=== PATIENT | female | born 1980 | race American Indian/Alaskan Native ===

== ENCOUNTER 2017-01-27 11:06 | Inpatient (IN) | payer MEDICAID ==
[2017-01-27] MEDS ORDERED: LACTATED RINGERS 1,000 ML ONE (11:07)
[2017-01-27] MEDS ORDERED: PITOCin/NS 20 UNIT/1000ML DRIP 20,000 MILLIUNITS/1,000 ML BAG IV ONE (11:07)
[2017-01-27 11:50] LABS: Basophils % (Auto) 0.6 % (0.0-1.8); Eosinophils % (Auto) 0.4 % (0.0-4.3); Mean Corpuscular HGB Conc 29 % (30-34); Platelet Count 337 K/mm3 (140-440); Red Blood Count 4.28 M/mm3 (3.65-5.03); White Blood Count 10.7 K/mm3 (4.5-11.0)
[2017-01-27 11:53] LABS: Hemoglobin 7.3 gm/dl (10.1-14.3)
[2017-01-27 11:54] LABS: Mean Corpuscular Hemoglobin 17 pg (28-32); Mean Corpuscular Volume 58 fl (79-97); Red Cell Distribution Width 21.6 % (13.2-15.2)
[2017-01-27] MEDS ORDERED: TORADOL IV ONE (11:59)
--- NOTE | 2017-01-27 11:59 | History and Physical Report ---
History of Present Illness Date of examination: 01/27/17 Date of admission: 01/27/17 11:08 Chief complaint: contractions and leakage of fluid History of present illness: 36y/o @ 39+4 weeks presents in active labor with advanced cervical dilatation. The patient reports leakage of fluid upon presentation. The patient is a transfer of care late in the third trimester. [facility] initiated her care at 20 weeks estimated gestational age. The patient has a history of a prior delivery with 2 successful vaginal deliveries after . Her course is also complicated by advanced maternal age and severe anemia. The patient has elected to have an attempt at a trial of labor. Her GBS status is positive. The patient did not receive adequate with antibiotic treatment for her GBS. Past History Past Medical History: no pertinent history Past Surgical History: section [employer] History: gonorrhea Social history: - Obstetrical History Expected Date of Delivery: 01/30/17 Actual Gestation: 39 Week(s) 4 Day(s) : 7 Para: 4 Hx # Term Pregnancies: 4 (stillborn ) Number of Pregnancies: 0 Spontaneous Abortions: 2 Induced : 0 Number of Living Children: 3 Medications and Allergies Allergies Allergy/AdvReac Type Severity Reaction Status Date / Time No Known Allergies Allergy Verified 08/08/14 06:35 Home Medications Medication Instructions Recorded Confirmed Last Taken Type Clarithromycin [Biaxin] 500 mg PO Q12H #20 tab 08/08/14 Unknown Rx HYDROcodone/APAP 10-325 [[place] 1 each PO Q4-6H PRN #20 tablet 08/08/14 Unknown Rx 10-325 mg TAB] Ranitidine (Nf) [Zantac (Nf)] 150 mg PO Q12H #60 tablet 08/08/14 Unknown Rx metroNIDAZOLE [Flagyl] 500 mg PO Q12H #20 tablet 08/08/14 Unknown Rx Review of Systems Genitourinary: leakage of fluid, pelvic pain, contractions - Vital Signs Vital signs: Vital Signs Pulse BP 80 121/71 01/27/17 11:40 01/27/17 11:40 Temp Pulse Resp BP Pulse Ox 80 121/71 01/27/17 11:40 01/27/17 11:40 - Physical Exam Breasts: Positive: deferred Cardiovascular: Regular rate Lungs: Positive: Clear to auscultation Abdomen: Positive: normal appearance, soft Anus/Rectum: Positive: hemorrhoids Results Result Diagrams: 01/27/17 11:08 Abnormal lab results 01/27/17 Range/Units 11:08 Hgb 7.3 L (10.1-14.3) gm/dl Hct 25.0 L (30.3-42.9) % MCV 58 L (79-97) fl MCH 17 L (28-32) pg MCHC 29 L (30-34) % RDW 21.6 H (13.2-15.2) % Seg Neutrophils % 75.5 H (40.0-70.0) % Seg Neutrophils # 8.1 H (1.8-7.7) K/mm3 All other labs normal. Assessment and Plan - Patient Problems (1) Iron deficiency anemia Current Visit: Yes Status: Acute Qualifiers: Iron deficiency anemia type: I Plan to address problem: The patient was admitted for labor (2) Previous delivery affecting Current Visit: Yes Status: Acute (3) Active labor at term Current Visit: Yes Status: Acute
[2017-01-27] MEDS ORDERED: SODIUM CHLORIDE FLUSH SYRINGE 10 ML IV NR (12:00)
[2017-01-27] MEDS ORDERED: DERMOPLAST TP PRN (12:00)
[2017-01-27] MEDS ORDERED: ZOFRAN IV PRN (12:00)
[2017-01-27] MEDS ORDERED: LANSINOH TP PRN (12:00)
[2017-01-27] MEDS ORDERED: PHENERGAN PO PRN (12:00)
[2017-01-27] MEDS ORDERED: MILK OF MAGNESIA PO PRN (12:00)
[2017-01-27] MEDS ORDERED: TYLENOL PO PRN (12:00)
[2017-01-27] MEDS ORDERED: DULCOLAX PR PRN (12:00)
[2017-01-27] MEDS ORDERED: PHENERGAN PR PRN (12:00)
[2017-01-27] MEDS ORDERED: TUCKS PAD TP PRN (12:00)
[2017-01-27] MEDS ORDERED: BENADRYL PO PRN (12:00)
--- NOTE | 2017-01-27 13:22 | Procedure Note ---
OB Delivery Note - Delivery Date of Delivery: 01/27/17 Surgeon: GREGORIO ALLISON Estimated blood loss: 200cc - Vaginal Delivery presentation: vertex Delivery position: OA Intrapartum events: none Delivery induction: none Delivery monitor: external FHT Route of delivery: Delivery placenta: spontaneous Delivery cord: nuchal cord, true knot, 3 umbilical vessels Episiotomy: none Delivery laceration: none Anesthesia: none Delivery comments: The patient admitted in active labor and rapidly progressed to complete complete +2 station. The patient pushed to deliver a liveborn male infant with Apgars of 8 and 9. After delivery of the head a loose nuchal cord was manually reduced 2. Was also findings of a true knot in the umbilical cord. After delivery of the head the shoulders delivered without difficulty. The infant was immediately bulb suctioned and placed on the patient's abdomen. The cord was clamped after pulsations had ceased. The cord was cut and the placenta was delivered spontaneously intact with a three-vessel cord. No vaginal lacerations were noted. The infant weight was 6 lbs. 7 oz. Cemented blood loss 200 mL. - Infant A at 1 minute: 8 at 5 minutes: 9 Infant Gender: Male (weight 6 lbs. 7 oz.)
[2017-01-27] MEDS: NORCO 5/325 PO PRN ×2 (15:02→21:43)
[2017-01-28] MEDS: MOTRIN PO SCH ×3 (00:20→12:00)
[2017-01-28 01:30] LABS: Hematocrit 20.7 % (30.3-42.9)
[2017-01-28 01:51] LABS: Hemoglobin 5.9 gm/dl (10.1-14.3)
[2017-01-28] MEDS ORDERED: NACL 0.9% 500 ML 500 ML IV SCH (02:00)
--- NOTE | 2017-01-28 13:32 | Progress Note ---
Assessment and Plan O: VSS AF 10hrs post delivery H/H: 5.9/20.7 Post blood transfusion H/H pending A: S/P Asymptomatic Anemia PICA P: consult once H/H resulted Subjective - Subjective Date of service: 01/28/17 Patient reports: appetite normal, voiding normally, pain well controlled, ambulating normally, other (Denies vertigo or syncope) [place]: doing well Objective - Vital Signs Latest vital signs: Vital Signs Temp Pulse Pulse Resp BP BP Pulse Ox 01/28/17 07:43 98.3 F 70 18 122/64 01/28/17 06:53 98.3 F 77 18 128/76 01/28/17 06:33 98.6 F 68 18 125/70 01/28/17 06:13 98.5 F 80 18 129/77 01/28/17 05:43 98.4 F 71 18 119/75 01/28/17 05:27 98 F 69 18 118/72 01/28/17 05:12 98.4 F 75 20 128/72 01/28/17 05:02 98.2 F 74 20 119/72 01/28/17 04:39 98.5 F 73 18 124/75 01/28/17 04:09 98.5 F 70 18 122/74 01/28/17 03:39 98.4 F 74 18 134/77 01/28/17 03:24 98.4 F 76 20 132/76 01/28/17 03:09 98.5 F 78 18 127/73 01/28/17 02:54 98.4 F 80 18 129/79 01/27/17 23:46 98.2 F 80 18 132/62 01/27/17 15:30 97.5 F L 72 18 126/66 01/27/17 13:42 74 100 01/27/17 13:40 73 143/80 01/27/17 13:37 75 100 01/27/17 13:32 77 100 Intake and Output 01/27/17 01/28/17 01/28/17 22:59 06:59 14:59 Intake Total 600 740 480 Output Total 250 300 Balance 350 440 480 Intake: Oral 480 240 480 Intake, Free Water 120 Blood Product 500 Leukoreduced Red Blood 250 Cells Unit [id number] Leukoreduced Red Blood 250 Cells Unit [id number] Output: Urine 250 300 Void 250 300 Other: Total, Intake Amount 240 240 480 Total, Output Amount 250 300 # Voids Void 2 1 1 - Exam Breasts: Present: deferred Lungs: Present: Normal air movement Abdomen: Present: normal appearance, soft. Absent: distention, tenderness Uterus: Present: normal, firm, fundal height below umbilicus. Absent: bogginess , tenderness Extremities: Present: normal. Absent: edema Deep Tendon Reflex Grade: Normal +2 - Labs Labs: Abnormal lab results 01/27/17 01/28/17 Range/Units 11:08 00:52 Hgb 5.9 L* (10.1-14.3) gm/dl Hct 20.7 L (30.3-42.9) % Crossmatch See Detail
[2017-01-28 13:36] LABS: Hematocrit 23.3 % (30.3-42.9); Hemoglobin 7.1 gm/dl (10.1-14.3)
[2017-01-28] MEDS: FEOSOL PO SCH ×2 (14:00→19:55)
[2017-01-28] MEDS: COLACE PO SCH (21:55)
[2017-01-28] MEDS ORDERED: FEOSOL PO SCH (22:00)
[2017-01-28] MEDS: NORCO 5/325 PO PRN (22:50)
[2017-01-29] MEDS: MOTRIN PO SCH ×2 (01:00→06:00)
--- NOTE | 2017-01-29 08:19 | Progress Note ---
Assessment and Plan A/P PPD#2 s/p with anemia 1. iron tabs s/p blood transfusion asymptomatic 2. male -discussed circumcision 3. f/u in 4 weeks for PP care 4. rh+ no rhogam indicated 5. d/c home today Subjective - Subjective Date of service: 01/29/17 Principal diagnosis: s/p with acute and chronic anemia Patient reports: appetite normal, voiding normally, pain well controlled, ambulating normally, no flatus [place]: doing well Objective - Vital Signs Latest vital signs: Vital Signs Temp Pulse Resp BP 01/29/17 00:37 98.5 F 79 20 135/87 01/28/17 16:17 98.2 F 84 18 126/68 Intake and Output 01/28/17 01/29/17 01/29/17 22:59 06:59 14:59 Intake Total 480 240 Balance 480 240 Intake: Oral 240 240 Intake, Free Water 240 Other: Total, Intake Amount 240 240 # Voids Void 1 1 - Exam Breasts: Present: deferred Cardiovascular: Present: Regular rate, Normal S1, Normal S2 Lungs: Present: Clear to auscultation, Normal air movement Abdomen: Present: normal appearance, soft, normal bowel sounds. Absent: distention, tenderness Vulva: both: normal Uterus: Present: normal, firm, fundal height below umbilicus (2cm) Extremities: Present: normal Deep Tendon Reflex Grade: Normal +2 - Labs Labs: Abnormal lab results 01/28/17 Range/Units 13:14 Hgb 7.1 L (10.1-14.3) gm/dl Hct 23.3 L (30.3-42.9) %
[2017-01-29] MEDS: COLACE PO SCH (08:24)
[2017-01-29] MEDS: FEOSOL PO SCH (08:24)
--- NOTE | 2017-01-29 12:24 | Discharge Summary ---
Providers - Providers Date of Admission: 01/27/17 11:08 Date of discharge: 01/29/17 Attending physician: GREGORIO ALLISON Primary care physician: BUSINESS WRITER Hospitalization Reason for admission: active labor Delivery: Episiotomy: none Laceration: none complications: none, transfusion (2u prbc ) Discharge diagnosis: IUP at term delivered [place] baby: male Condition at discharge: Good Disposition: DISCHARGED TO HOME OR SELFCARE Plan - Discharge Medications Prescriptions: Docusate Sodium [Colace] 100 mg PO BID PRN #30 capsule PRN Reason: Constipation Ferrous Sulfate [Feosol 325 MG tab] 325 mg PO TID #60 tablet Ibuprofen [Motrin] 600 mg PO Q8H PRN #60 tablet PRN Reason: Pain oxyCODONE /ACETAMINOPHEN [Percocet 5/325] 1 tab PO Q6HR PRN #20 tablet PRN Reason: Pain - Provider Discharge Summary Activity: no sex for 6 weeks Diet: routine Instructions: routine Additional instructions: [] Smoking cessation referral if applicable(refer to patient education folder for contact #) [] Refer to [facility]'s [facility] Booklet Call your doctor immediately for: * Fever > 100.5 * Heavy vaginal bleeding ( >1 pad per hour) * Severe persistent headache * Shortness of breath * Reddened, hot, painful area to leg or breast * Drainage or odor from incision. * Keep incision clean and dry at all times and follow doctor's instructions regarding bathing/showering - Follow up plan
[2017-01-29 13:25] VITALS: BP 132/78
== END 2017-01-29 15:15 | disposition home or self-care (01) | DRG 775 ==
LOC: TRG 11:06 → LD 11:08 → OB 14:27
PROVIDERS: ADMIT Obstetrics & Gynecology; ATTEND Obstetrics & Gynecology
PROC: 10E0XZZ Delivery of Products of Conception, External Approach (ICD-10-PCS; 2017-01-27)
PROC: 30233N1 Transfusion of Nonautologous Red Blood Cells into Peripheral Vein, Percutaneous Approach (ICD-10-PCS; principal; 2017-01-28)
DX: O69.1XX0 Labor and delivery complicated by cord around neck, with compression, not applicable or unspecified (principal); O34.211 Maternal care for low transverse scar from previous cesarean delivery; Z3A.39 39 weeks gestation of pregnancy; Z37.0 Single live birth; O99.013 Anemia complicating pregnancy, third trimester; O09.523 Supervision of elderly multigravida, third trimester; D50.9 Iron deficiency anemia, unspecified; O69.2XX0 Labor and delivery complicated by other cord entanglement, with compression, not applicable or unspecified
CPT/HCPCS: 36415; 85014; 85018; 85025; 86850; 86870; 86900; 86901; 86922; 99211; G0463; J1885; J2590; J7040; J7120; P9016

== ENCOUNTER 2018-11-30 02:32 | Emergency (ER) | payer MEDICAID ==
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
[2018-12-01 13:20] VITALS: BP 115/79
== END 2018-11-30 08:28 | disposition home or self-care (01) ==
LOC: ED 02:32
DX: M54.2 Cervicalgia (principal); M54.5 Low back pain; M79.641 Pain in right hand; M79.642 Pain in left hand; Z87.891 Personal history of nicotine dependence; V89.2XXA Person injured in unspecified motor-vehicle accident, traffic, initial encounter; Y93.89 Activity, other specified; Y92.488 Other paved roadways as the place of occurrence of the external cause; Y99.8 Other external cause status
CPT/HCPCS: 72100; 99283

== ENCOUNTER 2019-03-04 12:41 | Emergency (ER) | payer MEDICAID | END 2019-03-04 14:22 | LOC: ED 12:41 | DX: R20.0 Anesthesia of skin (principal); M54.9 Dorsalgia, unspecified; Z53.21 Procedure and treatment not carried out due to patient leaving prior to being seen by health care provider ==

== ENCOUNTER 2019-03-04 19:48 | Emergency (ER) | payer MEDICAID ==
[2019-03-04 21:10] VITALS: BP 127/82
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
== END 2019-03-05 00:30 | disposition left against medical advice (07) ==
LOC: ED 19:48
DX: M54.2 Cervicalgia (principal); Z53.21 Procedure and treatment not carried out due to patient leaving prior to being seen by health care provider
CPT/HCPCS: 72040

== ENCOUNTER 2019-04-29 16:20 | Emergency (ER) | payer MEDICAID ==
--- NOTE | 2019-04-29 16:52 | Emergency Department Report ---
Blank Doc - Documentation Documentation: This is a 39-year-old female that presents with urinary frequency. This initial assessment/diagnostic orders/clinical plan/treatment(s) is/are subject to change based on patient's health status, clinical progression and re- assessment by fellow clinical providers in the ED. Further treatment and workup at subsequent clinical providers discretion. Patient/guardians urged not to elope from the ED as their condition may be serious if not clinically assessed and managed. Initial orders include: 1- Patient sent to [facility] for further evaluation and treatment 2- UA
[2019-04-29 17:43] LABS: HCG Qualitative,Urine Negative (Negative)
[2019-04-29 17:57] LABS: Bilirubin,Urine NEG (Negative); Blood,Urine MOD (Negative); Color,Urine Yellow (Yellow); Mucus,Urine 2+ /HPF; Protein,Urine <15 mg/dL mg/dL (Negative); Urobilinogen,Urine < 2.0 mg/dL (<2.0)
--- NOTE | 2019-04-29 18:14 | Emergency Department Report ---
ED Female HPI - General Chief complaint: Urogenital-Female Stated complaint: CANT HOLD URINE Time Seen by Provider: 04/29/19 16:51 Source: patient Mode of arrival: Ambulatory Limitations: No Limitations - History of Present Illness Initial comments: This is a 39-year-old [place] female who presents to the emergency room with urinary urgency and frequency for 3 weeks. She reports similar symptoms a few months back seen in a different emergency room with inconclusive diagnosis. She denies abdominal pain, nausea or vomiting, fever, or dysuria. Onset/Timin -: week(s) Severity: mild Severity scale (0 -10): 0 Consistency: constant Improves with: none Worsens with: urination Are you Now?: No Last Menstrual Period: 02/23/19 EDC: 11/30/19 Associated Symptoms: denies other symptoms - Related Data Sexually active: Yes Previous Rx's Medication Instructions Recorded Last Taken Type Clarithromycin [Biaxin] 500 mg PO Q12H #20 tab 08/08/14 Unknown Rx HYDROcodone/APAP 10-325 [[place] 1 each PO Q4-6H PRN #20 tablet 08/08/14 Unknown Rx 10-325 mg TAB] Ranitidine (Nf) [Zantac (Nf)] 150 mg PO Q12H #60 tablet 08/08/14 Unknown Rx metroNIDAZOLE [Flagyl] 500 mg PO Q12H #20 tablet 08/08/14 Unknown Rx Docusate Sodium [Colace] 100 mg PO BID PRN #30 capsule 01/29/17 Unknown Rx Ferrous Sulfate [Feosol 325 MG tab] 325 mg PO TID #60 tablet 01/29/17 Unknown Rx oxyCODONE /ACETAMINOPHEN [Percocet 1 tab PO Q6HR PRN #20 tablet 01/29/17 Unknown Rx 5/325] Ibuprofen [Motrin 600 MG tab] 600 mg PO Q8H PRN #60 tablet 11/30/18 Unknown Rx Nitrofurantoin Lamb/M-Cryst 100 mg PO Q12HR #10 capsule 04/29/19 Unknown Rx [Macrobid CAP] Allergies Allergy/AdvReac Type Severity Reaction Status Date / Time No Known Allergies Allergy Verified 03/04/19 12:47 ED Review of Systems ROS: Stated complaint: CANT HOLD URINE Other details as noted in HPI Constitutional: denies: chills, fever Respiratory: denies: cough, shortness of breath, wheezing Cardiovascular: denies: chest pain, palpitations Gastrointestinal: denies: abdominal pain, nausea, diarrhea Genitourinary: urgency, frequency. denies: dysuria, discharge Musculoskeletal: denies: back pain, joint swelling, arthralgia Skin: denies: rash, lesions Neurological: denies: headache, weakness, paresthesias Psychiatric: denies: anxiety, depression ED Past Medical Hx - Past Medical History Hx Hypertension: No Hx Congestive Heart Failure: No Hx Diabetes: No Hx Deep Vein Thrombosis: No Hx Renal Disease: No Hx Sickle Cell Disease: No Hx Seizures: No Hx Asthma: No Hx COPD: No Hx HIV: No Additional medical history: History of peptic ulcer disease teenager - Surgical History Additional Surgical History: c section x1 - Social History Smoking Status: Never Smoker Substance Use Type: Alcohol - Medications Home Medications: Home Medications Medication Instructions Recorded Confirmed Last Taken Type Clarithromycin [Biaxin] 500 mg PO Q12H #20 tab 08/08/14 Unknown Rx HYDROcodone/APAP 10-325 [[place] 1 each PO Q4-6H PRN #20 tablet 08/08/14 Unknown Rx 10-325 mg TAB] Ranitidine (Nf) [Zantac (Nf)] 150 mg PO Q12H #60 tablet 08/08/14 Unknown Rx metroNIDAZOLE [Flagyl] 500 mg PO Q12H #20 tablet 08/08/14 Unknown Rx Docusate Sodium [Colace] 100 mg PO BID PRN #30 capsule 01/29/17 Unknown Rx Ferrous Sulfate [Feosol 325 MG tab] 325 mg PO TID #60 tablet 01/29/17 Unknown Rx oxyCODONE /ACETAMINOPHEN [Percocet 1 tab PO Q6HR PRN #20 tablet 01/29/17 Unknown Rx 5/325] Ibuprofen [Motrin 600 MG tab] 600 mg PO Q8H PRN #60 tablet 11/30/18 Unknown Rx Nitrofurantoin Lamb/M-Cryst 100 mg PO Q12HR #10 capsule 04/29/19 Unknown Rx [Macrobid CAP] ED Physical Exam - General Limitations: No Limitations General appearance: alert, in no apparent distress - Respiratory Respiratory exam: Present: normal lung sounds bilaterally. Absent: respiratory distress - Cardiovascular Cardiovascular Exam: Present: regular rate, normal rhythm. Absent: systolic murmur, diastolic murmur, rubs, gallop - GI/Abdominal GI/Abdominal exam: Present: soft, normal bowel sounds. Absent: distended, tenderness, guarding, rebound, rigid, organomegaly - Back Exam Back exam: Absent: CVA tenderness (R), CVA tenderness (L) - Neurological Exam Neurological exam: Present: alert, oriented X3 - Psychiatric Psychiatric exam: Present: normal affect, normal mood - Skin Skin exam: Present: warm, dry, intact, normal color. Absent: rash ED Course Vital Signs 04/29/19 16:51 Temperature 98.8 F Pulse Rate 84 Respiratory 16 Rate Blood Pressure 113/76 O2 Sat by Pulse 98 Oximetry ED Medical Decision Making - Lab Data Lab Results 04/29/19 Range/Units 17:25 Urine Color Yellow (Yellow) Urine Turbidity Slightly-cloudy (Clear) Urine pH 5.0 (5.0-7.0) Ur Specific [place] 1.024 (1.003-1.030) Urine Protein <15 mg/dl (Negative) mg/dL Urine Glucose (UA) Neg (Negative) mg/dL Urine Ketones Neg (Negative) mg/dL Urine Blood Mod (Negative) Urine Nitrite Neg (Negative) Ur Reducing Substances Not Reportable Urine Bilirubin Neg (Negative) Urine Ictotest Not Reportable Urine Urobilinogen < 2.0 (<2.0) mg/dL Ur Leukocyte Esterase Tr (Negative) Urine WBC (Auto) 6.0 (0.0-6.0) /HPF Urine RBC (Auto) 1.0 (0.0-6.0) /HPF U Epithel Cells (Auto) 7.0 (0-13.0) /HPF Urine Mucus 2+ /HPF Urine HCG, Qual Negative (Negative) - Medical Decision Making Patient was examined by me. Vitals are normal and patient is in no acute distress. Obtained a urinalysis. Urinalysis shows moderate blood and leukocyte esterase. Patient have UTI symptoms without abdominal tenderness or CVA tenderness. She will be treated for acute cystitis. A referred to urology for follow-up if symptoms don't improve after completion of antibiotics. Patient informed of results. Start macrobid x 5 days. Plan discussed with patient to discharge home and treat outpatient. She agrees with ER plan. Patient discharged home in stable condition. Follow up with PCP in 2-3 days. Critical care attestation.: If time is entered above; I have spent that time in minutes in the direct care of this critically ill patient, excluding procedure time. ED Disposition Clinical Impression: Urgency of urination, Frequency of urination, UTI symptoms Disposition: TO HOME OR SELFCARE Is pt being admited?: No Does the pt Need Aspirin: No Condition: Stable Instructions: Urinary Tract Infection in Women (ED) Additional Instructions: Increase fluid intake to 1L to 2L daily. Complete full course of antibiotics as prescribed. Avoid drinking alcohol while taking antibiotics and for 24 hours after completion. Follow up with primary care provider in 2-3 days. Prescriptions: Nitrofurantoin Lamb/M-Cryst [Macrobid CAP] 100 mg PO Q12HR #10 capsule Referrals: [facility] [Provider Group] - 3-5 Days [facility] [Outside] - 3-5 Days [facility] [Outside] - 3-5 Days Forms: Work/School Release Form(ED) Time of Disposition: 18:16
[2019-04-29 18:49] VITALS: BP 118/80
== END 2019-04-29 18:44 | disposition home or self-care (01) ==
LOC: ED 16:20
DX: N39.0 Urinary tract infection, site not specified (principal); Z79.1 Long term (current) use of non-steroidal anti-inflammatories (NSAID); Z79.899 Other long term (current) drug therapy
CPT/HCPCS: 81001; 81025; 99283

== ENCOUNTER 2021-05-21 12:27 | Emergency (ER) | payer MEDICAID ==
--- NOTE | 2021-05-21 12:33 | Event Note ---
ED Screening Note Date of service: 05/21/21 Time: 12:32 ED Screening Note: Patient complains of upper back pain radiating to her left chest for 2 weeks States pain is squeezing and worsens with deep inhalation and movement Denies any past medical history No shortness of breath This initial assessment/diagnostic orders/clinical plan/treatment(s) is/are subject to change based on patients health status, clinical progression and re- assessment by fellow clinical providers in the ED. Further treatment and workup at subsequent clinical providers discretion. Patient/guardian urged not to elope from the ED as their condition may be serious if not clinically assessed and managed. Initial orders include: Labs EKG Chest x-ray
[2021-05-21 13:46] LABS: Basophils % (Auto) 0.2 % (0.0-1.8); Eosinophils % (Auto) 0.7 % (0.0-4.3); Hematocrit 37.8 % (30.3-42.9); Hemoglobin 12.8 gm/dl (10.1-14.3); Lymphocytes # (Auto) 1.1 K/mm3 (1.2-5.4); Mean Corpuscular HGB Conc 34 % (30-34); Mean Corpuscular Volume 85 fl (79-97); Monocytes # (Auto) 0.3 K/mm3 (0.0-0.8); Monocytes % (Auto) 9.6 % (0.0-7.3); Platelet Count 364 K/mm3 (140-440); Red Blood Count 4.45 M/mm3 (3.65-5.03); Red Cell Distribution Width 13.8 % (13.2-15.2)
[2021-05-21 13:55] LABS: Alanine Aminotransferase 11 units/L (7-56); Albumin 4.4 g/dL (3.9-5); Blood Urea Nitrogen 10 mg/dL (7-17); Calcium 9.7 mg/dL (8.4-10.2); Hemolysis Index 3
--- NOTE | 2021-05-21 13:55 | XRay Report ---
CHEST 2 VIEWS INDICATION / CLINICAL INFORMATION: chest pain. COMPARISON: None available. FINDINGS: SUPPORT DEVICES: None. HEART / MEDIASTINUM: No significant abnormality. LUNGS / PLEURA: No significant pulmonary or pleural abnormality. No pneumothorax. ADDITIONAL FINDINGS: No significant additional findings. IMPRESSION: 1. No acute findings. Signer Name: Bhavesh Rice MD Signed: 05/21/2021 1:51 PM Workstation Name: [id number]
[2021-05-21 13:56] LABS: BUN/Creatinine Ratio 14
[2021-05-21] MEDS ORDERED: KETOROLAC 60 MG/2 ML INJ IM ONE (15:02)
--- NOTE | 2021-05-21 15:09 | Emergency Department Report ---
ED General Adult HPI - General Chief complaint: Back Pain/Injury Stated complaint: MIDDLE/UPPER BACK PAIN WHEN BREATHING/MOVING Time Seen by Provider: 05/21/21 12:31 Source: patient Mode of arrival: Ambulatory Limitations: No Limitations - History of Present Illness Initial comments: 41-year-old female complaining of upper back pain x2 weeks the pain moves across her back it worsens with movement and when she lifts any objects. She denies chest pain she denies shortness of breath she denies cough she denies fever she denies any URI symptoms she does denies any loss of taste and smell. She denies any recent falls traumas injuries or motor vehicle accidents. Patient is in no acute distress. -: week(s) (2 weeks) Location: back (Upper back) Radiation: non-radiation Quality: aching Consistency: constant Improves with: none Worsens with: movement, other (Lifting) Associated Symptoms: denies: confusion, chest pain, cough, diaphoresis, fever/chills, headaches, loss of appetite, malaise, nausea/vomiting, rash, shortness of breath, syncope, weakness Treatments Prior to Arrival: none - Related Data Previous Rx's Medication Instructions Recorded Last Taken Type Ferrous Sulfate [Feosol 325 MG tab] 325 mg PO TID #60 tablet 01/29/17 12/06/20 Rx Ibuprofen [Motrin 600 MG tab] 600 mg PO Q6H #30 tablet 12/09/20 Unknown Rx Ibuprofen [Motrin] 600 mg PO Q8H PRN #21 tablet 05/21/21 Unknown Rx Allergies Allergy/AdvReac Type Severity Reaction Status Date / Time No Known Allergies Allergy Verified 05/21/21 12:30 ED Review of Systems ROS: Stated complaint: MIDDLE/UPPER BACK PAIN WHEN BREATHING/MOVING Other details as noted in HPI Comment: All other systems reviewed and negative Constitutional: no symptoms reported Eyes: denies: eye pain ENT: denies: ear pain, throat pain, dental pain Respiratory: no symptoms reported. denies: cough, orthopnea, SOB with exertion, SOB at rest, wheezing Cardiovascular: denies: chest pain, palpitations, dyspnea on exertion, orthopnea, edema, syncope, paroxysmal nocturnal dyspnea Endocrine: no symptoms reported Gastrointestinal: denies: abdominal pain, nausea, vomiting Musculoskeletal: back pain Skin: denies: rash Neurological: denies: headache, weakness, paresthesias Psychiatric: denies: anxiety ED Past Medical Hx - Past Medical History Hx Hypertension: No Hx Congestive Heart Failure: No Hx Diabetes: Yes (current ) Hx Deep Vein Thrombosis: No Hx Renal Disease: No Hx Sickle Cell Disease: No Hx Seizures: No Hx Asthma: No Hx COPD: No Hx HIV: No Additional medical history: History of peptic ulcer disease teenager - Surgical History Additional Surgical History: c section x1 - Social History Smoking Status: Current Every Day Smoker Substance Use Type: None - Medications Home Medications: Home Medications Medication Instructions Recorded Confirmed Last Taken Type Ferrous Sulfate [Feosol 325 MG tab] 325 mg PO TID #60 tablet 01/29/17 12/08/20 12/06/20 Rx Ibuprofen [Motrin 600 MG tab] 600 mg PO Q6H #30 tablet 12/09/20 Unknown Rx Ibuprofen [Motrin] 600 mg PO Q8H PRN #21 tablet 05/21/21 Unknown Rx ED Physical Exam - General Limitations: No Limitations General appearance: alert, in no apparent distress - Head Head exam: Present: atraumatic, normal inspection - Eye Eye exam: Present: normal appearance - ENT ENT exam: Present: normal exam, mucous membranes moist - Neck Neck exam: Present: normal inspection, full ROM. Absent: tenderness - Respiratory Respiratory exam: Present: normal lung sounds bilaterally. Absent: respiratory distress, wheezes, rales - Cardiovascular Cardiovascular Exam: Present: regular rate, normal heart sounds - Extremities Exam Extremities exam: Present: normal inspection, normal capillary refill - Back Exam Back exam: Present: normal inspection, full ROM. Absent: tenderness, vertebral tenderness, rash noted - Neurological Exam Neurological exam: Present: alert, oriented X3 - Psychiatric Psychiatric exam: Present: normal affect - Skin Skin exam: Present: warm, dry, intact ED Course Vital Signs 05/21/21 12:30 Temperature 99.2 F Pulse Rate 79 Respiratory 20 Rate Blood Pressure 126/84 O2 Sat by Pulse 98 Oximetry - Reevaluation(s) Reevaluation #1: 05/21/21 15:10 Patient in no acute distress all findings reviewed with patient. Patient expressing concern that she may have a urinary tract infection even though she is not complaining of any urinary symptoms. Urine specimen sent 05/21/21 16:05 Urine results back patient has no signs of an infection plan to discharge home with upper back pain most likely muscular ED Medical Decision Making - Lab Data Result diagrams: 05/21/21 13:17 05/21/21 13:17 Lab Results 05/21/21 05/21/21 05/21/21 Range/Units 13:17 13:17 Unknown WBC 3.1 L (4.5-11.0) K/mm3 RBC 4.45 (3.65-5.03) M/mm3 Hgb 12.8 (10.1-14.3) gm/dl Hct 37.8 (30.3-42.9) % MCV 85 (79-97) fl MCH 29 (28-32) pg MCHC 34 (30-34) % RDW 13.8 (13.2-15.2) % Plt Count 364 (140-440) K/mm3 Lymph % (Auto) 35.0 (13.4-35.0) % [place] % (Auto) 9.6 H (0.0-7.3) % Eos % (Auto) 0.7 (0.0-4.3) % Baso % (Auto) 0.2 (0.0-1.8) % Lymph # (Auto) 1.1 L (1.2-5.4) K/mm3 [place] # (Auto) 0.3 (0.0-0.8) K/mm3 Eos # (Auto) 0.0 (0.0-0.4) K/mm3 Baso # (Auto) 0.0 (0.0-0.1) K/mm3 Seg Neutrophils % 54.5 (40.0-70.0) % Seg Neutrophils # 1.7 L (1.8-7.7) K/mm3 Sodium 140 (137-145) mmol/L Potassium 3.8 (3.6-5.0) mmol/L Chloride 102.3 (98-107) mmol/L Carbon Dioxide 28 (22-30) mmol/L Anion Gap 14 mmol/L BUN 10 (7-17) mg/dL Creatinine 0.7 (0.6-1.2) mg/dL Estimated GFR > 60 ml/min BUN/Creatinine Ratio 14 % Glucose 85 (65-100) mg/dL Calcium 9.7 (8.4-10.2) mg/dL Total Bilirubin 1.30 H (0.1-1.2) mg/dL AST 14 (5-40) units/L ALT 11 (7-56) units/L Alkaline Phosphatase 90 (35-129) units/L Troponin T < 0.010 (0.00-0.029) ng/mL Total Protein 7.1 (6.3-8.2) g/dL Albumin 4.4 (3.9-5) g/dL Albumin/Globulin Ratio 1.6 % Urine Color [place] (Yellow) Urine Turbidity Slightly cloudy (Clear) Urine pH 5.0 (5.0-7.0) Ur Specific [place] 1.030 (1.003-1.030) Urine Protein 30 mg/dl (Negative) mg/dL Urine Glucose (UA) Neg (Negative) mg/dL Urine Ketones Tr (Negative) mg/dL Urine Blood Neg (Negative) Urine Nitrite Neg (Negative) Urine Bilirubin Neg (Negative) Urine Urobilinogen 4.0 (<2.0) mg/dL Ur Leukocyte Esterase Tr (Negative) Urine WBC (Auto) 4.0 (0.0-6.0) /HPF Urine RBC (Auto) 7.0 (0.0-6.0) /HPF U Epithel Cells (Auto) 29.0 H (0-13.0) /HPF Urine Bacteria (Auto) 1+ (Negative) /HPF Urine Mucus 3+ /HPF Urine HCG, Qual Negative (Negative) - EKG Data EKG shows normal: sinus rhythm Rate: normal (Rate of 64) - EKG Data Interpretation: normal EKG - Radiology Data Radiology results: report reviewed Chest x-ray with no acute findings - Medical Decision Making 41-year-old female complaining of pain across her upper back for 2 weeks she has no vertebral point tenderness she has had no recent falls or trauma motor vehicle accident. She denies any upper respiratory symptoms there is no cough there is no chest pain there is no shortness of breath no fever no chills no loss of taste and smell. Her pain worsens with movement and when she bends over to hand picker an object. Chest x-ray has no acute findings lab works no acute findings. This appears to be more of muscular pain 1 dose of Toradol given in the ER patient is to follow-up with primary care doctor in 3 to 5 days. In addition urinalysis is negative for UTI Critical care attestation.: If time is entered above; I have spent that time in minutes in the direct care of this critically ill patient, excluding procedure time. ED Disposition Clinical Impression: Muscle pain Disposition: DC-01 TO HOME OR SELFCARE Is pt being admited?: No Does the pt Need Aspirin: No Condition: Stable Instructions: Musculoskeletal Pain Additional Instructions: Please drink lots of fluids you may start using warm compress on your back 2-3 times a day. Follow-up with your primary care doctor in 3 to 5 days. Take ibuprofen as prescribed for pain return to the emergency room for any worsening symptoms Prescriptions: Ibuprofen [Motrin] 600 mg PO Q8H PRN #21 tablet PRN Reason: Pain Referrals: PRIMARY CARE, [Primary Care Provider] - 3-5 Days Time of Disposition: 16:12
[2021-05-21 15:51] LABS: Bacteria,Urine 1+ /HPF (Negative); Bilirubin,Urine NEG (Negative); Blood,Urine NEG (Negative); Color,Urine Amber (Yellow); HCG Qualitative,Urine Negative (Negative); Mucus,Urine 3+ /HPF
[2021-05-21 16:54] VITALS: BP 124/79
--- NOTE | 2021-05-26 10:48 | Electrocardiograph Report ---
[facility] Test Date: 2021-05-21 Test Time: 13:02:05 Pat Name: OSMAN MILTON Department: Room: Gender: F Production Line Assembler: PATRICE : 1980 Requested By: SUNIL JIMENEZ Order Number: [id number] Reading MD: Mike Butler Measurements Intervals [facility] Rate: 64 P: 47 CO: 152 QRS: 40 QRSD: 83 T: -9 QT: 422 QTc: 435 Interpretive Statements Sinus rhythm Nonspecific T wave abnormality No previous ECG available for comparison Electronically Signed On 05-26-2021 10:47:41 EDT by Mike Butler
== END 2021-05-21 16:54 | disposition home or self-care (01) ==
LOC: ED 12:27
DX: M79.10 Myalgia, unspecified site (principal); M54.6 Pain in thoracic spine; E11.9 Type 2 diabetes mellitus without complications; F17.200 Nicotine dependence, unspecified, uncomplicated; Z98.890 Other specified postprocedural states; Z79.899 Other long term (current) drug therapy
CPT/HCPCS: 36415; 71046; 80053; 81001; 81025; 84484; 85025; 93005; 96372; 99284; J1885

== ENCOUNTER 2021-06-06 21:40 | Emergency (ER) | payer MEDICAID ==
[2021-06-06 22:29] VITALS: BP 122/81
[2021-06-06 22:56] LABS: Basophils % (Auto) 0.1 % (0.0-1.8); Eosinophils % (Auto) 0.4 % (0.0-4.3); Hematocrit 38.4 % (30.3-42.9); Hemoglobin 12.8 gm/dl (10.1-14.3); Lymphocytes # (Auto) 1.1 K/mm3 (1.2-5.4); Mean Corpuscular HGB Conc 33 % (30-34); Mean Corpuscular Volume 85 fl (79-97); Monocytes # (Auto) 0.3 K/mm3 (0.0-0.8); Monocytes % (Auto) 7.3 % (0.0-7.3); Platelet Count 428 K/mm3 (140-440); Red Blood Count 4.53 M/mm3 (3.65-5.03); Red Cell Distribution Width 13.5 % (13.2-15.2)
[2021-06-06 23:14] LABS: Alanine Aminotransferase 9 units/L (7-56); Albumin 4.5 g/dL (3.9-5); Blood Urea Nitrogen 11 mg/dL (7-17); Calcium 9.6 mg/dL (8.4-10.2); Hemolysis Index 3
[2021-06-06 23:18] LABS: BUN/Creatinine Ratio 16
--- NOTE | 2021-06-06 23:36 | XRay Report ---
CHEST 2 VIEWS INDICATION: SOB, covid+. COMPARISON: 05/21/2021 FINDINGS: SUPPORT DEVICES: None. HEART: Within normal limits. LUNGS/PLEURA: No acute air space or interstitial disease. No pneumothorax. ADDITIONAL FINDINGS: None. IMPRESSION: 1. No acute findings. Signer Name: Vincent Pressley MD Signed: 06/06/2021 11:31 PM Workstation Name: [id number]
--- NOTE | 2021-06-07 06:44 | Emergency Department Report ---
- General Chief Complaint: Dyspnea/Respdistress Stated Complaint: PATIENT STATED SHE IS COVID POSITIVE Time Seen by Provider: 06/07/21 06:36 Source: patient Mode of arrival: Ambulatory Limitations: No Limitations - History of Present Illness Initial Comments: 41-year-old -[place] female presents emergency department complaining continued Covid symptoms have been diagnosed on May 24 at [facility] has not yet followed up with her primary care provider or taking any medications to alleviate the symptoms she thinks may see off-and-on headaches with some cough and congestion chest aches with coughing spells and occasional shortness of breath. She reports no hemoptysis no hematemesis hematochezia, no fevers, chills, sweats MD Complaint: cough, sinus pain -: Gradual Associated Symptoms: chills, myalgias, rhinorrhea. denies: shortness of breath, abdominal pain, rash, confusion, weight loss, epistaxis - Related Data Previous Rx's Medication Instructions Recorded Last Taken Type Ferrous Sulfate [Feosol 325 MG tab] 325 mg PO TID #60 tablet 01/29/17 12/06/20 Rx Ibuprofen [Motrin 600 MG tab] 600 mg PO Q6H #30 tablet 12/09/20 Unknown Rx Ibuprofen [Motrin] 600 mg PO Q8H PRN #21 tablet 05/21/21 Unknown Rx Albuterol Mdi (or & Nicu Only) 1 puff IH QID PRN #8.5 gram 06/07/21 Unknown Rx [ProAir HFA Inhaler] Ketorolac [Toradol] 10 mg PO Q6H PRN #20 tablet 06/07/21 Unknown Rx Allergies Allergy/AdvReac Type Severity Reaction Status Date / Time No Known Allergies Allergy Verified 05/21/21 12:30 ED Review of Systems ROS: Stated complaint: PATIENT STATED SHE IS COVID POSITIVE Other details as noted in HPI Comment: All other systems reviewed and negative ED Past Medical Hx - Past Medical History Hx Hypertension: No Hx Congestive Heart Failure: No Hx Diabetes: Yes (gestational) Hx Deep Vein Thrombosis: No Hx Renal Disease: No Hx Sickle Cell Disease: No Hx Seizures: No Hx Asthma: No Hx COPD: No Hx HIV: No Additional medical history: History of peptic ulcer disease teenager, anemia - Surgical History Additional Surgical History: c section x1 - Social History Smoking Status: Never Smoker Substance Use Type: None - Medications Home Medications: Home Medications Medication Instructions Recorded Confirmed Last Taken Type Ferrous Sulfate [Feosol 325 MG tab] 325 mg PO TID #60 tablet 01/29/17 12/08/20 12/06/20 Rx Ibuprofen [Motrin 600 MG tab] 600 mg PO Q6H #30 tablet 12/09/20 Unknown Rx Ibuprofen [Motrin] 600 mg PO Q8H PRN #21 tablet 05/21/21 Unknown Rx Albuterol Mdi (or & Nicu Only) 1 puff IH QID PRN #8.5 gram 06/07/21 Unknown Rx [ProAir HFA Inhaler] Ketorolac [Toradol] 10 mg PO Q6H PRN #20 tablet 06/07/21 Unknown Rx ED Physical Exam - General Limitations: No Limitations General appearance: alert, in no apparent distress - Head Head exam: Present: atraumatic, normocephalic - Eye Eye exam: Present: normal appearance, PERRL Pupils: Present: normal accommodation - ENT ENT exam: Present: normal exam, mucous membranes moist - Neck Neck exam: Present: normal inspection, full ROM - Respiratory Respiratory exam: Present: normal lung sounds bilaterally. Absent: respiratory distress, wheezes, rales, accessory muscle use, decreased breath sounds - Cardiovascular Cardiovascular Exam: Present: regular rate, normal rhythm. Absent: systolic murmur, diastolic murmur, rubs, gallop - GI/Abdominal GI/Abdominal exam: Present: soft, normal bowel sounds - Extremities Exam Extremities exam: Present: normal inspection, normal capillary refill - Back Exam Back exam: Present: normal inspection. Absent: CVA tenderness (R), CVA tenderness (L) - Neurological Exam Neurological exam: Present: alert, oriented X3, CN II-XII intact, normal gait - Psychiatric Psychiatric exam: Present: normal affect, normal mood - Skin Skin exam: Present: warm, dry, intact, normal color. Absent: rash ED Course Vital Signs 06/06/21 06/07/21 22:20 07:46 Temperature 97.8 F 98.8 F Pulse Rate 74 68 Respiratory 18 16 Rate Blood Pressure 122/81 O2 Sat by Pulse 98 100 Oximetry ED Medical Decision Making - Lab Data Result diagrams: 06/06/21 22:33 06/06/21 22:33 Lab Results 06/06/21 06/06/21 06/06/21 Range/Units 22:33 22:33 22:33 WBC 3.8 L (4.5-11.0) K/mm3 RBC 4.53 (3.65-5.03) M/mm3 Hgb 12.8 (10.1-14.3) gm/dl Hct 38.4 (30.3-42.9) % MCV 85 (79-97) fl MCH 28 (28-32) pg MCHC 33 (30-34) % RDW 13.5 (13.2-15.2) % Plt Count 428 (140-440) K/mm3 Lymph % (Auto) 29.0 (13.4-35.0) % O'Brien % (Auto) 7.3 (0.0-7.3) % Eos % (Auto) 0.4 (0.0-4.3) % Baso % (Auto) 0.1 (0.0-1.8) % Lymph # (Auto) 1.1 L (1.2-5.4) K/mm3 O'Brien # (Auto) 0.3 (0.0-0.8) K/mm3 Eos # (Auto) 0.0 (0.0-0.4) K/mm3 Baso # (Auto) 0.0 (0.0-0.1) K/mm3 Seg Neutrophils % 63.2 (40.0-70.0) % Seg Neutrophils # 2.4 (1.8-7.7) K/mm3 Sodium 137 (137-145) mmol/L Potassium 4.2 (3.6-5.0) mmol/L Chloride 101.6 (98-107) mmol/L Carbon Dioxide 26 (22-30) mmol/L Anion Gap 14 mmol/L BUN 11 (7-17) mg/dL Creatinine 0.7 (0.6-1.2) mg/dL Estimated GFR > 60 ml/min BUN/Creatinine Ratio 16 % Glucose 90 (65-100) mg/dL Calcium 9.6 (8.4-10.2) mg/dL Total Bilirubin 0.80 (0.1-1.2) mg/dL AST 13 (5-40) units/L ALT 9 (7-56) units/L Alkaline Phosphatase 82 (35-129) units/L Total Protein 7.3 (6.3-8.2) g/dL Albumin 4.5 (3.9-5) g/dL Albumin/Globulin Ratio 1.6 % HCG, Qual Negative (Negative) - Radiology Data Radiology results: report reviewed [facility] [address] [place] [address] XRay Report Signed Patient: OSMAN MILTON MR#: [id number] : 1980 Acct:[id number] Age/Sex: 41 / F ADM Date: 06/06/21 Loc: ED Attending Dr: Ordering Physician: MAVIS MERAZ Date of Service: 06/06/21 Procedure(s): XR chest routine 2V Accession Number(s): [id number] cc: MAVIS MERAZ Fluoro Time In Minutes: CHEST 2 VIEWS INDICATION: SOB, covid+. COMPARISON: 05/21/2021 FINDINGS: SUPPORT DEVICES: None. HEART: Within normal limits. LUNGS/PLEURA: No acute air space or interstitial disease. No pneumothorax. ADDITIONAL FINDINGS: None. IMPRESSION: 1. No acute findings. Signer Name: Vincent Pressley MD Signed: 06/06/2021 11:31 PM Workstation Name: [id number] Transcribed By: JW Dictated By: Vincent Pressley MD Electronically Authenticated By: Vincent Pressley MD Signed Date/Time: 06/06/212330 DD/ 30 TD/TT: Print Cancel - Medical Decision Making This patient presents to the emergency department with fever and lower respiratory symptoms concerning for viral syndrome including flu and COVID-19. Patient has suspicion and is for COVID-19 infection. Differential diagnosis includes other viral causes of lower respiratory symptoms, pneumonia, asthma, bronchitis. Patient is well-appearing with acceptable vitals, lacks comorbidities admission and a reassuring physical examination and is safe to be discharged home nasal swab for COVID testing is recommended. Provide strict return precautions and instructions on self isolation/quarantine and anticipatory guidance. Critical care attestation.: If time is entered above; I have spent that time in minutes in the direct care of this critically ill patient, excluding procedure time. ED Disposition Clinical Impression: Viral syndrome Disposition: DC-01 TO HOME OR SELFCARE Is pt being admited?: No Does the pt Need Aspirin: No Condition: Stable Prescriptions: Albuterol Mdi (or & Nicu Only) [ProAir HFA Inhaler] 1 puff IH QID PRN #8.5 gram PRN Reason: sob and cough Ketorolac [Toradol] 10 mg PO Q6H PRN #20 tablet PRN Reason: Pain Referrals: PRIMARY CARE, [Primary Care Provider] - 3-5 Days [facility] [Provider Group] - 3-5 Days
== END 2021-06-07 07:47 | disposition home or self-care (01) ==
LOC: ED 21:40
DX: U07.1 COVID-19 (principal); B34.9 Viral infection, unspecified; R09.89 Other specified symptoms and signs involving the circulatory and respiratory systems; J34.89 Other specified disorders of nose and nasal sinuses
CPT/HCPCS: 36415; 71046; 80053; 84703; 85025; 99283

== ENCOUNTER 2021-08-04 15:23 | Outpatient (CLI) | payer MEDICAID ==
[2021-08-04 16:16] LABS: C-Reactive Protein 0.1 mg/dL (0.00-1.30)
[2021-08-04 17:06] LABS: ABG Base Excess -1.1 mmol/L (-2.0-3.0); ABG HCO3 23.7 mmol/L (20.0-26.0); ABG Methemoglobin 0.3 % (0.0-1.5); ABG Oxygen Saturation 97.4 % (95.0-99.0); ABG PH 7.391 pH Units (7.350-7.450)
== END 2021-08-04 15:24 | disposition home or self-care (01) ==
LOC: LAB 15:23
PROVIDERS: ATTEND Internal Medicine
DX: J45.909 Unspecified asthma, uncomplicated (principal); D64.9 Anemia, unspecified; Z86.16 Personal history of COVID-19
CPT/HCPCS: 36415; 36600; 82728; 82803; 83615; 85379; 85652; 86021; 86038; 86140; 86431